=== PATIENT | female | born 1945 | race Caucasian/White ===

== ENCOUNTER → 2018-10-26 13:01 | Outpatient (CLI) | payer OTHER, SELFPAY ==
--- NOTE | 2018-10-26 14:51 | PM.TREADMILL ---
Cardiac Stress Test Report Referral & Results Date Patient Seen: 10/26/18 Requesting provider: Leticia James Indication: Shortness of breath Rest ECG: Unremarkable Procedure Note: Today following both written and verbal informed consent the patient was exercised according to a standard Martinez protocol patient went for a total of 3 minutes 27 seconds all of which was Martinez protocol stage I, achieving a maximum heart rate of 150 maximum systolic blood pressure of 180. This is approximately 4.6 METS. Exercise was terminated at this point because of severe dyspnea. Patient was also given Cardiolite through a previously started Hep-Lock IV by the diagnostic imaging staff approximately 1 minute prior to the cessation of exercise. There are no ST-T segment changes Patient was tachycardic at rest and peak heart rate was also somewhat tachycardic normal blood pressure response Functional aerobic impairment rated about 18% of the sedentary scale Dyspnea was fairly marked and profound early on. Impression: Severe dyspnea without clear etiology No ECG changes to suggest ischemia Somewhat limited exercise capacity Please see perfusion imaging report as well. Please note: Actual ECG tracings can be found in the PACS system.
--- NOTE | 2018-10-31 17:49 | DI.NM.S_ITS ---
DATE OF SERVICE: 10/26/2018 PROCEDURE: Exercise perfusion study. INDICATIONS: Shortness of breath, palpitations, hypertension. RADIOPHARMACEUTICAL: 26.4 mCi technetium-99m Myoview IV was injected at stress and 20.8 mCi technetium-99m Myoview IV was injected at rest. CARDIAC STRESS: Patient underwent exercise perfusion study under the supervision of an attending staff. She walked on Martinez protocol for 3 minutes 27 seconds and develop significant shortness of breath. Baseline blood pressure was 136/82 and heart rate 105 with sinus tachycardia. Maximum heart rate about 150 bpm and peak blood pressure 180/68. Patient achieved 102% of target heart rate, 4.6 METs of workload, and ONESIMO +18% on sedentary scale. Baseline rhythm was sinus with mild sinus tachycardia with some nonspecific ST-T changes. Stress EKG did not reveal inducible ischemic changes. There was no significant new arrhythmia. RAW DATA: Breast shadow was seen. GATED STUDY: Resting LV ejection fraction 75 and stress LV ejection fraction 78% without any obvious wall motion abnormalities. Resting end-diastolic volume is 118 mL. No transient ischemic dilatation. TID ratio is 0.86, which is within normal limits. Lung/heart ratio is 0.40, which is within normal limits. Patient's weight is 203 pounds. MYOCARDIAL PERFUSION SCAN: Stress supine and resting supine images revealed small-sized mildly decreased perfusion of anterior wall which got resolved during prone images suggestive of breast tissue attenuation artifact. I don't see any convincing ischemia infarction. CONCLUSION: I will call this study a normal myocardial perfusion study with evidence of breast tissue attenuation artifact which got resolved during prone images. Patient has diminished exercise tolerance. She has mild sinus tachycardia at rest. Developed significant shortness of breath. Her weight is 203 pounds. Consider 2-D echocardiogram to make sure there is no significant diastolic dysfunction as well as pulmonary workup. [employer] - MARLEE/loc/ doc#: [id number]/job#: [id number] dd: 10/31/2018 17:00:00 dt: 10/31/2018 17:39:00 DICTATING MD/COPIES TO: June Lowe MD COPIES MNE: BERNARDO
== END ==
PROVIDERS: Visit Provider Physician Assistant Medical
DX: R06.02 Shortness of breath (principal)
CPT/HCPCS: 78452; 93016; 93017; 93018; A9502

== ENCOUNTER → 2018-10-31 13:27 | Outpatient (CLI) | payer OTHER, SELFPAY ==
--- NOTE | 2018-10-31 | DI.ECHO.S_ITS ---
[place] +---------+ Hospital +---------+ : : [address] : : : : [address] : : : : Phone: [phone] Echocardiogram Report + + :Name: ANDREI ALMONTE Study Date: 10/31/2018 Height: 65 in : :[facility] Exam Location: IS Weight: 203 lb : : Gender: Female BSA: 2.0 m2 : :: 1945 Age: 73 yrs BP: 138/75 mmHg: :Reason For Study: SHORTNESS OF BREATH : : Performed By: Guillermo Mccauley : :Referring: [facility] : + + Interpretation Summary The left ventricle is normal in size, wall thickness, and systolic function without any focal wall motion abnormalities with the ejection fraction visually estimated to be 55-60%. Diastolic function could not be accurately assessed due to contradictory data. The right ventricle is at the upper limits of normal in size but systolic function is normal. There is mild pulmonary hypertension with the right ventricular systolic pressure estimated to be at least 37 mmHg based on an estimated right atrial pressure of 3 mm Hg. The left atrium is moderately dilated and the right atrium is mildly dilated. There is mild tricuspid regurgitation but no other significant valvular heart disease. The ascending aorta is mildly enlarged. Procedure: A two-dimensional transthoracic echocardiogram with color flow and Doppler was performed. The study quality was technically good. There is no prior echocardiogram noted for this patient. The patient was in normal sinus rhythm during the exam. Left Ventricle: The left ventricle is normal in size, wall thickness, and systolic function without any focal wall motion abnormalities. The ejection fraction is estimated to be 55-60%. Diastolic function could not be accurately assessed due to contradictory data. Right Ventricle: The right ventricle is at the upper limits of normal in size. The right ventricular systolic function is normal. Atria: The left atrium is moderately dilated. The right atrium is mildly dilated. The interatrial septum is intact with no evidence for an atrial septal defect. Mitral Valve: The mitral valve is normal in structure and function. There is trace mitral regurgitation. Aortic Valve: The aortic valve is trileaflet. The aortic valve opens well. There is trace aortic regurgitation. Tricuspid Valve: The tricuspid valve is normal in structure and function. There is mild tricuspid regurgitation. There is mild pulmonary hypertension. The right ventricular systolic pressure is estimated to be at least 37 mmHg based on an estimated right atrial pressure of 3 mm Hg. Pulmonic Valve: The pulmonic valve is normal in structure and function. There is trace pulmonic regurgitation. There is no other significant valvular heart disease. Great Vessels: The aortic root is normal size. The ascending aorta is mildly enlarged. The pulmonary artery is normal size. The IVC is of normal diameter and collapses greater than 50% with a sniff. This suggests a low right atrial pressure of 3 mm Hg. Pericardium/ Pleura There is no pericardial effusion. There is no pleural effusion. MMode/2D Measurements & Calculations LVIDd: 4.7 cm LVOT diam: 2.2 cm LVIDs: 2.8 cm Ao root diam: 3.4 cm FS: 39.8 % Aortic Jxn: 2.7 cm EPSS: 0.38 cm asc Aorta Diam: 3.4 cm IVSd: 0.99 cm Ao Arch Diam (Prox Trans): 2.3 cm LVPWd: 0.94 cm LV patino. diameter/BSA (cm/m^2): 2.4 LV sys. diameter/BSA (cm/m^2): 1.4 LA dimension: 3.8 cm RA long axis: 5.4 cm LA A2 area: 24.6 cm2 RA area: 20.5 cm2 LA A4 area: 28.4 cm2 RA vol: 66.3 ml LA length (vol): 6.6 cm RA : 33.3 ml/m2 LA vol: 90.6 ml IVC diam: 1.4 cm LA vol index: 45.5 ml/m2 RVD1 (basal): 4.4 cm RVD2 (mid): 4.8 cm Doppler Measurements & Calculations Ao V2 max: 149.6 cm/sec LVOT Max Kaushal: 106.8 cm/sec Ao V2 mean: 116.8 cm/sec LV V1 max P.6 mmHg Ao max P.9 mmHg LV V1 VTI: 28.4 cm Ao mean P.8 mmHg ALFONSO(I,D): 3.1 cm2 Ao V2 VTI: 36.9 cm ALFONSO(V,D): 2.8 cm2 sev ratio: 0.77 ALFONSO indexed to BSA (cm^2/m^2): 1.5 MV E max kaushal: 85.7 cm/sec TR max kaushal: 291.0 cm/sec MV A max kaushal: 94.5 cm/sec TR max P.9 mmHg MV E/A: 0.91 PA V2 max: 97.2 cm/sec Med Peak E' Kaushal: 6.6 cm/sec PA V2 mean: 70.1 cm/sec E/E' med: 13.0 PA mean P.1 mmHg Lat Peak E' Kaushal: 12.3 cm/sec PA pr(Accel): 21.6 mmHg E/E' lat: 7.0 PA Accel Time: 0.13 sec E/e' average: 10.0 MV dec time: 0.18 sec SV(OT): 112.8 ml Reading Physician:PM
== END ==
PROVIDERS: PCP Family Medicine Geriatric Medicine; Visit Provider Physician Assistant Medical
DX: R06.02 Shortness of breath (principal); I27.20 Pulmonary hypertension, unspecified; I07.1 Rheumatic tricuspid insufficiency; I77.89 Other specified disorders of arteries and arterioles
CPT/HCPCS: 93306

== ENCOUNTER 2018-12-10 17:43 | Observation (INO) | payer OTHER, SELFPAY ==
[2018-12-10] VITALS (8 sets, daily range): BP systolic 124–150; BP diastolic 59–76; PULSE 64–79; RESP 12–18; TEMP 36.3–36.7; O2SAT 92–100; BMI 27.4
--- NOTE | 2018-12-10 19:53 | ED.WEAKNESS ---
HPI - Weakness General Chief complaint: Weakness Stated complaint: INFUSION AND O2 IS REALLY LOW Time Seen by Provider: 12/10/18 18:01 Source: patient and family Mode of arrival: ambulatory Limitations: no limitations History of Present Illness HPI Narrative: Patient comes emergency department complaining of progressive generalized weakness for the last several months. She states that his become especially pronounced over the last 2 weeks. Patient denies any blood in her stools. No melena. She denies any chest pain. She has been short of breath with exertion. Patient denies fevers or chills. She states she has been under the care of a employee communications intern, and has put herself on some sort of natural anticoagulant. She states she did this because she was concerned about forming blood clots. There is no personal or family history of blood clots or CVA. She states her last dose was last night. Patient finally went to see her primary care physician a couple of weeks ago, and was sent for a stress test, which did not show any EKG changes. However, the patient became very dyspneic during the stress test, and so she was told she needed to go see a picked edge sewing machine operator. The patient came back to her home and for her, where she followed up with her employee communications intern, and was found to have a hemoglobin of 5.1 on labs. Patient was told to call [facility], which she did, and they stated they did not have her records of her labs, so she should follow up with her primary care physician. Patient called her primary doctor today, and was told to come here, which she did, via [employer]. Patient denies ever having any history of anemia or GI bleed previously. She states she does not believe that she could be bleeding, despite her use of an apparent anticoagulant agent. No other complaints at this time. Related Data Allergies Allergy/AdvReac Type Severity Reaction Status Date / Time No Known Drug Allergies Allergy Verified 12/10/18 18:02 Review of Systems Constitutional Constitutional: Denies chills, Denies fatigue, Denies fever(s), Denies frequent falls, Denies lethargy and Reports weakness Eyes Eyes: Denies change in vision, Denies eye discharge, Denies irritation and Denies loss of vision ENT Ears, Nose, Mouth, and Throat: Denies change in voice, Denies dizziness, Denies neck pain, Denies sore throat and Denies throat swelling Cardiovascular Cardiovascular: Denies chest pain, Denies irregular heart rhythm, Denies lightheadedness, Denies palpitations, Denies dyspnea, Denies dyspnea on exertion and Denies orthopnea Respiratory Respiratory: Denies cough, Denies dyspnea, Denies dyspnea on exertion and Denies wheezing Gastrointestinal Gastrointestinal: Denies abdominal pain, Denies change in bowel habits, Denies diarrhea, Denies nausea and Denies vomiting Genitourinary Genitourinary: Denies hematuria, Denies flank pain, Denies urinary incontinence and Denies urinary urgency Musculoskeletal Musculoskeletal: Denies back pain, Denies muscle weakness, Denies neck pain, Denies numbness and Denies tingling Integumentary/Breasts Skin/Breast: Denies pruritus, Denies erythema, Denies rash and Denies wounds Neurologic Neurologic: Denies behavioral changes, Denies confusion, Denies dizziness, Denies frequent falls, Denies loss of vision, Denies numbness, Denies tingling and Reports weakness Psychiatric Psychiatric: Denies anxiety, Denies behavioral changes, Denies confusion, Denies depression, Denies homicidal ideation and Denies suicidal ideation Endocrine Endocrine: Denies fatigue, Denies flushing and Denies palpitations Hematologic/Lymphatic Hematologic/Lymphatic: Denies easy bruising Allergic/Immunologic Allergic/Immunologic: Denies urticaria, Denies throat swelling and Denies wheezing [facility] Medical History (Updated 12/11/18 @ 04:02 by NARA Rock) Cataract (Acute) Gluten intolerance (Acute) History of ectopic (Acute) Normal colonoscopy (Acute) Peripheral neuropathy (Acute) Pernicious anemia (Acute) Rheumatic fever (Acute) Surgical History (Updated 12/11/18 @ 04:03 by NARA Rock) History of cholecystectomy (Acute) Family History (Updated 12/11/18 @ 04:04 by NARA Rock) Father Lung cancer Alcohol abuse Social History household members: spouse Smoking Status: Never smoker Family History (Updated 12/11/18 @ 04:04 by NARA Rock) Father Lung cancer Alcohol abuse Social History household members: spouse Smoking Status: Never smoker Exam Initial Vital Signs Initial Vital Signs: Vital Signs Temperature 98.1 F 12/10/18 17:57 Pulse Rate 67 12/10/18 17:57 Respiratory Rate 18 12/10/18 17:57 Blood Pressure 150/72 H 12/10/18 17:57 Pulse Oximetry 100 12/10/18 17:57 Const General: cooperative and well developed Nutritional Appearance: well nourished Orientation: alert, awake, oriented x3 and not confused [facility] Head: normocephalic and atraumatic Ears: TM's normal bilaterally Nose: external nose normal and No nasal discharge Face and sinus: face symmetric and No dry mucous membranes Mouth: oral mucosae normal and moist mucous membranes Teeth and gingiva: dentition normal Eyes General: appearance normal, both eyes and all related structures Eyelids: eyelids normal Conjunctivae: conjunctivae normal Sclera: sclerae normal Pupils: PERRL EOM: EOM intact bilaterally Neck Neck: normal visual inspection, trachea midline, No lymphadenopathy, No midline deformity and No JVD Lymphatic: No lymphedema Chest Chest: normal inspection of the chest Resp Effort & Inspection: normal respiratory effort, able to speak in complete sentences, no respiratory distress and no use of accessory muscles Auscultation: clear to auscultation bilaterally, no rales, no rhonchi and no wheezes Cardio Rate: regular rate Rhythm: regular rhythm Heart Sounds: no click, no gallops, no murmurs and no rubs Pulses: normal peripheral pulses GI Inspection: non-distended Palpation: soft, no hepatosplenomegaly, No guarding, No pulsatile mass and No tender Auscultation: normal bowel sounds Rectal Exam: heme positive stool (Moderate) Back/Spine/Pelvis Back: No CVA tenderness Cervical Spine: cervical ROM normal and No pain with cervical ROM Thoracic/Lumbar Spine: thoracic and lumbar spine normal to inspection Skin General: no rashes or lesions noted, No jaundice, No petechiae and pallor (Marked) Neuro General: alert, oriented x3, gait normal and no focal motor deficits Speech: speech normal Extrem General: full ROM, no clubbing, cyanosis or edema, no pedal edema and no calf tenderness Psych Appearance: well kempt Mental Status: mental status grossly normal Attitude: cooperative Thought Content: normal and suicidality Judgment: judgment good Course Course Course Narrative: Patient was worked up with labs, and type and screen/cross were done. Patient was found have an even lower hemoglobin of 4.7. Patient was cross-matched for 2 units packed red cells. I spoke with hospitalist Taylor, who agreed to admit the patient to her service. I have discussed with the patient that she will most likely need to have endoscopy and colonoscopy to evaluate her GI bleeding in the setting of severe anemia. Patient remained hemodynamically stable throughout her stay in the emergency department. Orders Ordered: Pantoprazole Sodium (Protonix) 40 mg IV BID ALBIN Discontinued Medications Iron Sucrose 200 mg/ Sodium (Chloride) 110 mls @ 220 mls/hr IV NOW ONE Stop: 12/11/18 05:59 Pantoprazole Sodium (Protonix) 80 mg IV NOW ONE Stop: 12/10/18 21:22 Last Admin: 12/10/18 21:33 Dose: 80 mg Documented by: CPRUITT Vital Signs Vital signs: Vital Signs - 8 hr 12/10/18 17:57 12/10/18 18:30 Temperature 98.1 F Pulse Rate 67 73 Respiratory Rate 18 16 Blood Pressure 150/72 H Blood Pressure [Left Arm] 142/61 H Pulse Oximetry 100 98 MDM - Weakness Medical Records Attestation: I reviewed the patient's medical records. Lab Data Attestation: I reviewed the patient's lab results. Result diagrams: 12/11/18 06:34 12/11/18 06:34 Labs: Lab Results 12/10/18 12/10/18 12/10/18 Range/Units 00:10 20:30 20:30 WBC 4.4 L (4.5-11.0) X10^3/uL RBC 2.64 L (4.0-5.2) X10^6/uL Hgb 4.7 L* (12.0-16.0) g/dL Hct 16.5 L* (36-46) % MCV 62.5 L (80-100) fL MCH 17.9 L (26-34) PG MCHC 28.7 L (30-36) % RDW 19.3 H (11.6-14.8) % Plt Count 350 (150-400) X10^3/uL Neut % (Auto) 69.3 (50-75) % Lymph % (Auto) 16.5 L (25-40) % Bullitt % (Auto) 12.0 (3-14) % Eos % (Auto) 1.3 L (2-4) % Baso % (Auto) 0.9 (0-2) % Neut # (Auto) 3100 (6059-2215) /uL Lymph # (Auto) 700 L (9886-3326) /uL Bullitt # (Auto) 500 (0-900) /uL Eos # (Auto) 100 (0-450) /uL Baso # (Auto) 0 (0-100) /uL RBC Morphology See below Polychromasia 1+ H Hypochromasia 3+ H Microcytosis 2+ H Percent Retic (1.06-2.63) % PT 12.3 (10.1-12.7) SECONDS INR 1.1 (0.9-1.3) Sodium (137-145) mmol/L Potassium (3.4-5.1) mmol/L Chloride (98-107) mmol/L Carbon Dioxide (22-32) mmol/L BUN (7-17) mg/dL Creatinine (0.52-1.04) mg/dL Estimated GFR (>60) mL/min BUN/Creatinine Ratio (6-22) Glucose (80-110) mg/dL Lactate (0.7-2.1) mmol/L Calcium (8.4-10.2) mg/dL Iron (37-170) ug/dL TIBC (265-497) ug/dL % Saturation (15-50) % Transferrin (206-381) mg/dL Ferritin (11.1-264) ng/mL Total Bilirubin (0.2-1.3) mg/dL AST (14-36) IU/L ALT (9-52) IU/L Alkaline Phosphatase (38-126) U/L Lactate Dehydrogenase (313-618) U/L Total Protein (6.3-8.2) g/dL Albumin (3.5-5.0) g/dL Globulin (1.7-4.1) g/dL Albumin/Globulin Ratio (1.0-2.8) Vitamin B12 (239-931) pg/mL Folate > 20.0 H (2.76-20.0) ng/mL Blood Type Antibody Screen Crossmatch 12/10/18 12/10/18 12/10/18 Range/Units 20:30 20:30 20:30 WBC (4.5-11.0) X10^3/uL RBC (4.0-5.2) X10^6/uL Hgb (12.0-16.0) g/dL Hct (36-46) % MCV (80-100) fL MCH (26-34) PG MCHC (30-36) % RDW (11.6-14.8) % Plt Count (150-400) X10^3/uL Neut % (Auto) (50-75) % Lymph % (Auto) (25-40) % Bullitt % (Auto) (3-14) % Eos % (Auto) (2-4) % Baso % (Auto) (0-2) % Neut # (Auto) (7576-9038) /uL Lymph # (Auto) (1977-0181) /uL Bullitt # (Auto) (0-900) /uL Eos # (Auto) (0-450) /uL Baso # (Auto) (0-100) /uL RBC Morphology Polychromasia Hypochromasia Microcytosis Percent Retic (1.06-2.63) % PT (10.1-12.7) SECONDS INR (0.9-1.3) Sodium 141 (137-145) mmol/L Potassium 3.7 (3.4-5.1) mmol/L Chloride 110 H (98-107) mmol/L Carbon Dioxide 21 L (22-32) mmol/L BUN 17 (7-17) mg/dL Creatinine 0.70 (0.52-1.04) mg/dL Estimated GFR > 60.0 (>60) mL/min BUN/Creatinine Ratio 24.3 H (6-22) Glucose 93 (80-110) mg/dL Lactate 0.9 (0.7-2.1) mmol/L Calcium 9.0 (8.4-10.2) mg/dL Iron (37-170) ug/dL TIBC (265-497) ug/dL % Saturation (15-50) % Transferrin (206-381) mg/dL Ferritin (11.1-264) ng/mL Total Bilirubin 0.3 (0.2-1.3) mg/dL AST 22 (14-36) IU/L ALT 18 (9-52) IU/L Alkaline Phosphatase 62 (38-126) U/L Lactate Dehydrogenase (313-618) U/L Total Protein 6.5 (6.3-8.2) g/dL Albumin 3.8 (3.5-5.0) g/dL Globulin 2.7 (1.7-4.1) g/dL Albumin/Globulin Ratio 1.4 (1.0-2.8) Vitamin B12 (239-931) pg/mL Folate (2.76-20.0) ng/mL Blood Type O Positive Antibody Screen Negative Crossmatch See Detail 12/10/18 12/10/18 12/10/18 Range/Units 20:30 20:30 20:30 WBC (4.5-11.0) X10^3/uL RBC (4.0-5.2) X10^6/uL Hgb (12.0-16.0) g/dL Hct (36-46) % MCV (80-100) fL MCH (26-34) PG MCHC (30-36) % RDW (11.6-14.8) % Plt Count (150-400) X10^3/uL Neut % (Auto) (50-75) % Lymph % (Auto) (25-40) % Bullitt % (Auto) (3-14) % Eos % (Auto) (2-4) % Baso % (Auto) (0-2) % Neut # (Auto) (3974-1384) /uL Lymph # (Auto) (5097-2507) /uL Bullitt # (Auto) (0-900) /uL Eos # (Auto) (0-450) /uL Baso # (Auto) (0-100) /uL RBC Morphology Polychromasia Hypochromasia Microcytosis Percent Retic (1.06-2.63) % PT (10.1-12.7) SECONDS INR (0.9-1.3) Sodium (137-145) mmol/L Potassium (3.4-5.1) mmol/L Chloride (98-107) mmol/L Carbon Dioxide (22-32) mmol/L BUN (7-17) mg/dL Creatinine (0.52-1.04) mg/dL Estimated GFR (>60) mL/min BUN/Creatinine Ratio (6-22) Glucose (80-110) mg/dL Lactate (0.7-2.1) mmol/L Calcium (8.4-10.2) mg/dL Iron 17 L (37-170) ug/dL TIBC 442 (265-497) ug/dL % Saturation 4 L (15-50) % Transferrin 346 (206-381) mg/dL Ferritin 3.8 L (11.1-264) ng/mL Total Bilirubin (0.2-1.3) mg/dL AST (14-36) IU/L ALT (9-52) IU/L Alkaline Phosphatase (38-126) U/L Lactate Dehydrogenase (313-618) U/L Total Protein (6.3-8.2) g/dL Albumin (3.5-5.0) g/dL Globulin (1.7-4.1) g/dL Albumin/Globulin Ratio (1.0-2.8) Vitamin B12 294 (239-931) pg/mL Folate (2.76-20.0) ng/mL Blood Type Antibody Screen Crossmatch 12/10/18 12/10/18 Range/Units 20:30 20:30 WBC (4.5-11.0) X10^3/uL RBC (4.0-5.2) X10^6/uL Hgb (12.0-16.0) g/dL Hct (36-46) % MCV (80-100) fL MCH (26-34) PG MCHC (30-36) % RDW (11.6-14.8) % Plt Count (150-400) X10^3/uL Neut % (Auto) (50-75) % Lymph % (Auto) (25-40) % Bullitt % (Auto) (3-14) % Eos % (Auto) (2-4) % Baso % (Auto) (0-2) % Neut # (Auto) (6734-9818) /uL Lymph # (Auto) (1315-8653) /uL Bullitt # (Auto) (0-900) /uL Eos # (Auto) (0-450) /uL Baso # (Auto) (0-100) /uL RBC Morphology Polychromasia Hypochromasia Microcytosis Percent Retic 2.9 H (1.06-2.63) % PT (10.1-12.7) SECONDS INR (0.9-1.3) Sodium (137-145) mmol/L Potassium (3.4-5.1) mmol/L Chloride (98-107) mmol/L Carbon Dioxide (22-32) mmol/L BUN (7-17) mg/dL Creatinine (0.52-1.04) mg/dL Estimated GFR (>60) mL/min BUN/Creatinine Ratio (6-22) Glucose (80-110) mg/dL Lactate (0.7-2.1) mmol/L Calcium (8.4-10.2) mg/dL Iron (37-170) ug/dL TIBC (265-497) ug/dL % Saturation (15-50) % Transferrin (206-381) mg/dL Ferritin (11.1-264) ng/mL Total Bilirubin (0.2-1.3) mg/dL AST (14-36) IU/L ALT (9-52) IU/L Alkaline Phosphatase (38-126) U/L Lactate Dehydrogenase 325 (313-618) U/L Total Protein (6.3-8.2) g/dL Albumin (3.5-5.0) g/dL Globulin (1.7-4.1) g/dL Albumin/Globulin Ratio (1.0-2.8) Vitamin B12 (239-931) pg/mL Folate (2.76-20.0) ng/mL Blood Type Antibody Screen Crossmatch Discharge Plan Departure Patient Disposition: Admitted As Inpatient Clinical Impression: Anemia Discharge Date/Time: 12/10/18 22:05 Admit Date/Time: 12/10/18 21:34 Admit Provider: Angela Vazquez
[2018-12-10 20:50] LABS: INR 1.1 (0.9-1.3); Prothrombin Time 12.3 SECONDS (10.1-12.7)
[2018-12-10 20:52] LABS: Add Manual Diff / Slide Review NO; Basophils Absolute Auto 0 /uL (0-100); Mean Corpuscular HGB Conc 28.7 % (30-36); Monocytes Absolute Auto 500 /uL (0-900); Neutrophils Absolute Auto 3100 /uL (1500-7000)
[2018-12-10 20:54] LABS: Basophils Percent Auto 0.9 % (0-2); Eosinophils Absolute Auto 100 /uL (0-450); Eosinophils Percent Auto 1.3 % (2-4); Lymphocytes Absolute Auto 700 /uL (1100-4500); Lymphocytes Percent Auto 16.5 % (25-40); Mean Corpuscular Hemoglobin 17.9 PG (26-34); Mean Corpuscular Volume 62.5 fL (80-100); Neutrophils Percent Auto 69.3 % (50-75); Platelet Count 350 X10^3/uL (150-400); Red Blood Cell Count 2.64 X10^6/uL (4.0-5.2); Red Cell Distribution Width 19.3 % (11.6-14.8); White Blood Cell Count 4.4 X10^3/uL (4.5-11.0)
[2018-12-10 20:55] LABS: Alanine Aminotransferase 18 IU/L (9-52); Albumin 3.8 g/dL (3.5-5.0); Albumin Globulin Ratio 1.4 (1.0-2.8); Alkaline Phosphatase 62 U/L (38-126); Aspartate Aminotransferase 22 IU/L (14-36); BUN Creatinine Ratio 24.3 (6-22); Bilirubin Total 0.3 mg/dL (0.2-1.3); Blood Urea Nitrogen 17 mg/dL (7-17); Carbon Dioxide 21 mmol/L (22-32); Chloride 110 mmol/L (98-107); Estimated Glomerular Filt Rate > 60.0 mL/min (>60); Globulin 2.7 g/dL (1.7-4.1); Glucose 93 mg/dL (80-110); HEMOLYSIS < 15 (0-50); Potassium 3.7 mmol/L (3.4-5.1); Sodium 141 mmol/L (137-145); Total Protein 6.5 g/dL (6.3-8.2)
[2018-12-10 20:56] LABS: Hematocrit 16.5 % (36-46); Hemoglobin 4.7 g/dL (12.0-16.0); Lactate (Lactic Acid) 0.9 mmol/L (0.7-2.1)
[2018-12-10] MEDS: PANTOPRAZOLE 40 MG VIAL 80 MG IV (21:33)
[2018-12-10 21:36] LABS: Hypochromasia 3+; Microcytosis 2+; Polychromasia 1+
--- NOTE | 2018-12-10 23:49 | P.HP_ITS ---
History of Present Illness History of Present Illness Date Patient Seen: 12/10/18 Time Patient Seen: 23:29 Chief complaint: INFUSION AND O2 IS REALLY LOW Narrative: The patient is a 73-year-old female w/ PMHx of pernicious anemia, neuropathy, gluten intolerance / Celiac disease, and cortisol / endocrine abnormalities. Patient presented to the ED with generalized weakness. Symptoms initially noted in May of 2018. Progressively worsening, more so over the past 2 weeks. In addition, lab work done 2-3 days ago by her naturopathic provider revealed a nemia with a hemoglobin level of 5.1 by report. Associated symptoms include headache, dizziness, lightheadedness, BLE edema of ankle / foot (L > R) and shortness of breath. Shortness of breath is pronounced and exacerbated with exertion /decreased exercise tolerance. Patient denies chest pain, pa lpitations, abdominal pain, gastrointestinal distress, do hematochezia. On 10/31/2018 had an echo, LVEF 55-60%. LV normal in size, wall thickness, and systolic function without any focal wall motion abnormalities. It is noted that diastolic function could not be accurately assessed due to contradictory dated. Mild PH with RVSP of at least 37 mmHg. LA moderately dilated. RA mildly dilated. Mild tricuspid regurgitation, but no other significant valvular heart disease. Ascending aorta is mildly enlarged. On 10/26/2018 underwent NM myocardial perfusion scan with no indication of ischemia. Denies prior history of anemia. Denies history of peptic ulcer disease, polyps, or inflammatory bowel disease. She does note gluten intolerance; however, does not specifically state that she has celiac disease. Notes recently deviating from her gluten free diet. Denies dysphagia, abdominal pain, weight loss, nausea and vomiting, and use of NSAIDs. Patient History Medical History (Updated 12/11/18 @ 04:02 by NARA Rock) Cataract (Acute) Gluten intolerance (Acute) History of ectopic (Acute) Normal colonoscopy (Acute) Peripheral neuropathy (Acute) Pernicious anemia (Acute) Rheumatic fever (Acute) Surgical History (Updated 12/11/18 @ 04:03 by NARA Rock) History of cholecystectomy (Acute) Family History (Updated 12/11/18 @ 04:04 by NARA Rock) Father Lung cancer Alcohol abuse Social History household members: spouse Smoking Status: Never smoker Family & Social History Family History (Updated 12/11/18 @ 04:04 by NARA Rock) Father Lung cancer Alcohol abuse Social History: household members spouse Prior Living Arrangements House Safety & Behavioral: Feels Safe in Current Yes Environment Been Physically Hurt or No Threatened By a Person Suicidal Ideation Description None Suicide Plan Description No Plan Tobacco & Substance use: Smoking Status Never smoker alcohol intake frequency 0-2 drinks per day Substance Use Type does not use Meds Home Medications and Allergies Allergies Allergy/AdvReac Type Severity Reaction Status Date / Time No Known Drug Allergies Allergy Verified 12/10/18 18:02 Review of Systems Review of Systems ROS Unobtainable: All systems reviewed & are unremarkable except as noted in HPI and below Exam Vital Signs (past 8 hours): - 12/10/18 17:57 12/10/18 18:30 12/10/18 19:30 Temperature 98.1 F Pulse Rate 67 73 74 Respiratory Rate 18 16 16 Blood Pressure 150/72 H Blood Pressure [Left Arm] 142/61 H 150/76 H Pulse Oximetry 100 98 100 12/10/18 20:00 12/10/18 21:00 12/10/18 21:40 Temperature Pulse Rate 65 67 79 Respiratory Rate 16 15 15 Blood Pressure Blood Pressure [Left Arm] 142/68 H 141/73 H 150/69 H Pulse Oximetry 98 92 97 12/10/18 22:25 12/10/18 22:47 Temperature 97.7 F 97.4 F L Pulse Rate 64 64 Respiratory Rate 12 18 Blood Pressure 138/70 124/59 L Blood Pressure [Left Arm] Pulse Oximetry Oxygen Delivery Method Room Air Narrative Exam Narrative: Constitutional: NAD Neurologic: AOx3, no focal neurological deficits Head: NC, AT Eyes: PERRL, EOMI, Ears: external ears normal, no otorrhea Nose: external nose normal, no rhinorrhea or epistaxis Throat: dry MM, oropharynx w/o exudate Neck: no masses, lymphadenopathy, or JVD Chest / Respiratory: equal chest rise, unlabored respiratory effort, no dyspnea or tachypnea, diminished breath sounds Heart / CV: S1S2, no murmur Abdomen / GI: round, NT, ND, + BS, no organomegaly : no suprapubic tenderness, no CVA Peripheral / Vascular: warm to touch, DP and PT pulses palpable, trace BLE edema Musc: full ROM of upper and lower extremities, adequate muscle tone and bulk Skin: no ecchymosis, generalized pallor, generalized dryness of skin, Objective Labs Result Diagrams: 12/10/18 20:30 12/10/18 20:30 Labs: Laboratory Results - last 24 hr 12/10/18 12/10/18 12/10/18 20:30 20:30 20:30 WBC 4.4 L RBC 2.64 L Hgb 4.7 L* Hct 16.5 L* MCV 62.5 L MCH 17.9 L MCHC 28.7 L RDW 19.3 H Plt Count 350 Neut % (Auto) 69.3 Lymph % (Auto) 16.5 L [place] % (Auto) 12.0 Eos % (Auto) 1.3 L Baso % (Auto) 0.9 Neut # (Auto) 3100 Lymph # (Auto) 700 L [place] # (Auto) 500 Eos # (Auto) 100 Baso # (Auto) 0 RBC Morphology See below Polychromasia 1+ H Hypochromasia 3+ H Microcytosis 2+ H PT 12.3 INR 1.1 Sodium 141 Potassium 3.7 Chloride 110 H Carbon Dioxide 21 L BUN 17 Creatinine 0.70 Estimated GFR > 60.0 BUN/Creatinine Ratio 24.3 H Glucose 93 Lactate Calcium 9.0 Total Bilirubin 0.3 AST 22 ALT 18 Alkaline Phosphatase 62 Total Protein 6.5 Albumin 3.8 Globulin 2.7 Albumin/Globulin Ratio 1.4 Blood Type Antibody Screen Crossmatch 12/10/18 12/10/18 20:30 20:30 WBC RBC Hgb Hct MCV MCH MCHC RDW Plt Count Neut % (Auto) Lymph % (Auto) [place] % (Auto) Eos % (Auto) Baso % (Auto) Neut # (Auto) Lymph # (Auto) [place] # (Auto) Eos # (Auto) Baso # (Auto) RBC Morphology Polychromasia Hypochromasia Microcytosis PT INR Sodium Potassium Chloride Carbon Dioxide BUN Creatinine Estimated GFR BUN/Creatinine Ratio Glucose Lactate 0.9 Calcium Total Bilirubin AST ALT Alkaline Phosphatase Total Protein Albumin Globulin Albumin/Globulin Ratio Blood Type O Positive Antibody Screen Negative Crossmatch See Detail Assessment & Plan Assessment & Plan narrative: Patient is being admitted for evaluation and treatment of anemia. HGB 4.7, HCT 16.5, MCV 62.5, MCH 17.9, MCHC 28.7, RDW 19.3, PLT 350 WBC 4.4, Lactate 0.9 Guiac + , no active s/s of melena, hematochezia, or other blood loss. VSS S/S: pallor, weakness, fatigue, exertional dyspnea, exercise intolerance Microcytic hypochromic anemia, acute, present on admission, active Suspected to be secondary to iron deficiency. H/O celiac disease. Denies prior history of anemia. - T&S, 2 units PRBCs ordered in ED (finished transfusing at 4:00 a.m. on 12/11) - Received 80 mg IV protonix in ED, will continue PPI 40 mg BID starting in am on 12/11 - Iron studies, B12, folate, retic count results: Iron 17 TIBC 442 TSAT 4% Transferrin 346 Ferritin 3.8, indicates severe iron deficiency Retic count 2.9%, absolute retic count is 1.1 indicating hypoproliferation B12 294 Folate > 20 WNL . Severe iron deficiency Will treat with Venofer 200 mg IV x1, consider 4 more doses to be given QOD if patient has not been discharged - Blood smear reveals hypochromic, microcytic RBCs - CBC in am after blood transfusion - Consider general surgery consult, as still need to rule out chronic blood loss, needs endoscopy Exercise intolerance, acute, present on admission, active - Echo with LVEF 55-60% - NM stress test without indication of ischemia - Consider pulm evaluation if exercise intolerance is not corrected with iron repletion Metabolic acidosis, compensated, present on admission, active Compensated without lactic acidosis, lactate Celiac disease/gluten intolerance, chronic condition, present on admission, stable Now with complications of iron deficiency likely in the setting of malabsorption. No known prior ulcers. - Patient will need to be evaluated further with endoscopy - Will make NPO Code status discussed. Patient wishes to be full code. Designates as proxy decision maker. Patient does not take common OTC meds. She is on a number of supplements which will be held at this time. VTE prophylaxis with SCDs.
[2018-12-11] VITALS (11 sets, daily range): BP systolic 120–144; BP diastolic 54–82; PULSE 65–79; RESP 10–21; TEMP 36.5–36.9; O2SAT 94–99
[2018-12-11 00:04] LABS: Iron 17 ug/dL (37-170)
[2018-12-11 00:14] LABS: Percent Iron Saturation 4 % (15-50); Total Iron Binding Capacity 442 ug/dL (265-497); Transferrin 346 mg/dL (206-381)
[2018-12-11 00:33] LABS: Lactate Dehydrogenase 325 U/L (313-618)
[2018-12-11 00:42] LABS: Ferritin 3.8 ng/mL (11.1-264)
[2018-12-11 01:24] LABS: Vitamin B12 294 pg/mL (239-931)
[2018-12-11 01:40] LABS: Folate > 20.0 ng/mL (2.76-20.0)
[2018-12-11 02:37] LABS: Reticulocyte Count, Percent 2.9 % (1.06-2.63)
[2018-12-11 06:52] LABS: Basophils Absolute Auto 0 /uL (0-100); Basophils Percent Auto 0.5 % (0-2); Eosinophils Absolute Auto 100 /uL (0-450); Eosinophils Percent Auto 1.3 % (2-4); Hematocrit 22.7 % (36-46); Hemoglobin 7.2 g/dL (12.0-16.0); Lymphocytes Absolute Auto 600 /uL (1100-4500); Mean Corpuscular HGB Conc 31.6 % (30-36); Mean Corpuscular Hemoglobin 21.7 PG (26-34); Mean Corpuscular Volume 68.5 fL (80-100); Monocytes Absolute Auto 600 /uL (0-900); Monocytes Percent Auto 11.6 % (3-14); Neutrophils Absolute Auto 3600 /uL (1500-7000); Neutrophils Percent Auto 73.6 % (50-75); Platelet Count 334 X10^3/uL (150-400); Red Blood Cell Count 3.31 X10^6/uL (4.0-5.2); Red Cell Distribution Width 26.3 % (11.6-14.8); White Blood Cell Count 4.9 X10^3/uL (4.5-11.0)
[2018-12-11 06:56] LABS: Add Manual Diff / Slide Review SLIDE REVIEW
[2018-12-11 06:57] LABS: Alanine Aminotransferase 21 IU/L (9-52); Albumin 3.7 g/dL (3.5-5.0); Albumin Globulin Ratio 1.4 (1.0-2.8); Alkaline Phosphatase 59 U/L (38-126); Aspartate Aminotransferase 21 IU/L (14-36); BUN Creatinine Ratio 17.1 (6-22); Bilirubin Total 0.5 mg/dL (0.2-1.3); Blood Urea Nitrogen 12 mg/dL (7-17); Carbon Dioxide 21 mmol/L (22-32); Chloride 112 mmol/L (98-107); Estimated Glomerular Filt Rate > 60.0 mL/min (>60); Globulin 2.6 g/dL (1.7-4.1); Glucose 97 mg/dL (80-110); HEMOLYSIS < 15 (0-50); Potassium 3.5 mmol/L (3.4-5.1); Sodium 141 mmol/L (137-145); Total Protein 6.3 g/dL (6.3-8.2)
[2018-12-11 07:27] LABS: Microcytosis 1+
[2018-12-11 07:28] LABS: Anisocytosis 3+; Hypochromasia 2+
[2018-12-11] MEDS: IRON SUCROSE 200 MG in SODIUM CHLORIDE 0.9% 100 ML 220 ML IV (09:12)
[2018-12-11] MEDS: PANTOPRAZOLE 40 MG VIAL IV (09:14)
--- NOTE | 2018-12-11 10:12 | PM.DS.1 ---
History of Present Illness History of Present Illness Date Patient Seen: 12/11/18 Chief complaint: INFUSION AND O2 IS REALLY LOW Narrative: Patient presented to the ED with generalized weakness. Symptoms initially noted in May of 2018. Progressively worsening, more so over the past 2 weeks. In addition, lab work done 2-3 days ago by her naturopathic provider revealed anemia with a hemoglobin level of 5.1 by report. Associated symptoms include headache, dizziness, lightheadedness, BLE edema of ankle / foot (L > R) and shortness of breath. Shortness of breath is pronounced and exacerbated with exertion /decreased exercise tolerance. Patient denies chest pain, palpitations, abdominal pain, gastrointestinal distress, do hematochezia. On 10/31/2018 had an echo, LVEF 55-60%. LV normal in size, wall thickness, and systolic function without any focal wall motion abnormalities. It is noted that diastolic function could not be accurately assessed due to contradictory dated. Mild PH with RVSP of at least 37 mmHg. LA moderately dilated. RA mildly dilated. Mild tricuspid regurgitation, but no other significant valvular heart disease. Ascending aorta is mildly enlarged. On 10/26/2018 underwent NM myocardial perfusion scan with no indication of ischemia. Denies prior history of anemia. Denies history of peptic ulcer disease, polyps, or inflammatory bowel disease. She does note gluten intolerance; however, does not specifically state that she has celiac disease. Notes recently deviating from her gluten free diet. Denies dysphagia, abdominal pain, weight loss, nausea and vomiting, and use of NSAIDs. Discharge Providers Provider Date of admission: 12/10/18 21:34 Discharge Date: 12/11/18 Primary care physician: Bri Jimenez MD Consults: 12/11/18 05:19 Consult to General Surgery Routine Comment: Consulting Provider: Mina Welsh Reason for consultation: anemia, guiac + Has provider been notified: No Discharge provider: Juliane Kohli MD Summary Hospital Course Discharge Diagnosis: 1. symptomatic iron deficiency anemia 2. Status post 2 units of packed RBCs 3. History of pernicious anemia 4. Peripheral neuropathy 5. History of rheumatic fever Hospital Course: The patient is a 73-year-old female who was admitted to the hospital for shortness of breath, fatigue, symptomatic anemia. She was found to have a hemoglobin of 4.7 on admission. The patient was found to be severely iron deficient. She was given IV iron. The patient received 2 units of packed RBCs. Her hemoglobin improved, with a H&H 6.8 and 22. The patient had no further shortness of breath, she was anxious to discharge home. Patient's case was discussed with General surgery. They recommended outpatient upper endoscopy and colonoscopy. The patient did have a guaiac-positive stool but had no melena or bright red blood per rectum. She had no hematemesis. The patient was agreeable to follow up on , 2 days after admission for upper and lower endoscopy. Patient had no specific complaints. She was deemed appropriate for discharge. Arrangements were made for her to be discharged home. Status at Discharge Cognitive/behavioral status at discharge: oriented Functional status at discharge: independent ambulation Overall status at discharge: patient is back to baseline Time Spent with Patient Time spent: Less than 30 minutes Exam Vital Signs (past 8 hours): - 12/11/18 03:45 12/11/18 04:06 12/11/18 05:00 Temperature 98.1 F 98.1 F Pulse Rate 66 71 Respiratory Rate 10 L 19 Blood Pressure 133/60 133/60 Pulse Oximetry 98 95 12/11/18 07:42 Temperature 97.7 F Pulse Rate 70 Respiratory Rate 21 Blood Pressure 144/73 H Pulse Oximetry 98 Oxygen Delivery Method Room Air Narrative Exam Narrative: Pleasant female in no obvious distress Lungs: Clear to auscultation Cardiac exam: Regular rate and rhythm normal S1-S2 Abdomen: Soft nontender nondistended Extremities: No edema Skin: No lesion Objective Labs Result Diagrams: 12/11/18 06:34 12/11/18 06:34 Labs: Laboratory Results - last 24 hr 12/10/18 12/10/18 12/10/18 00:10 20:30 20:30 WBC 4.4 L RBC 2.64 L Hgb 4.7 L* Hct 16.5 L* MCV 62.5 L MCH 17.9 L MCHC 28.7 L RDW 19.3 H Plt Count 350 Neut % (Auto) 69.3 Lymph % (Auto) 16.5 L [place] % (Auto) 12.0 Eos % (Auto) 1.3 L Baso % (Auto) 0.9 Neut # (Auto) 3100 Lymph # (Auto) 700 L [place] # (Auto) 500 Eos # (Auto) 100 Baso # (Auto) 0 RBC Morphology See below Polychromasia 1+ H Hypochromasia 3+ H Anisocytosis Microcytosis 2+ H Percent Retic PT 12.3 INR 1.1 Sodium Potassium Chloride Carbon Dioxide BUN Creatinine Estimated GFR BUN/Creatinine Ratio Glucose Lactate Calcium Iron TIBC % Saturation Transferrin Ferritin Total Bilirubin AST ALT Alkaline Phosphatase Lactate Dehydrogenase Total Protein Albumin Globulin Albumin/Globulin Ratio Vitamin B12 Folate > 20.0 H Nasal Screen MRSA (PCR) Blood Type Antibody Screen Crossmatch 12/10/18 12/10/18 12/10/18 20:30 20:30 20:30 WBC RBC Hgb Hct MCV MCH MCHC RDW Plt Count Neut % (Auto) Lymph % (Auto) [place] % (Auto) Eos % (Auto) Baso % (Auto) Neut # (Auto) Lymph # (Auto) [place] # (Auto) Eos # (Auto) Baso # (Auto) RBC Morphology Polychromasia Hypochromasia Anisocytosis Microcytosis Percent Retic PT INR Sodium 141 Potassium 3.7 Chloride 110 H Carbon Dioxide 21 L BUN 17 Creatinine 0.70 Estimated GFR > 60.0 BUN/Creatinine Ratio 24.3 H Glucose 93 Lactate 0.9 Calcium 9.0 Iron TIBC % Saturation Transferrin Ferritin Total Bilirubin 0.3 AST 22 ALT 18 Alkaline Phosphatase 62 Lactate Dehydrogenase Total Protein 6.5 Albumin 3.8 Globulin 2.7 Albumin/Globulin Ratio 1.4 Vitamin B12 Folate Nasal Screen MRSA (PCR) Blood Type O Positive Antibody Screen Negative Crossmatch See Detail 12/10/18 12/10/18 12/10/18 20:30 20:30 20:30 WBC RBC Hgb Hct MCV MCH MCHC RDW Plt Count Neut % (Auto) Lymph % (Auto) [place] % (Auto) Eos % (Auto) Baso % (Auto) Neut # (Auto) Lymph # (Auto) [place] # (Auto) Eos # (Auto) Baso # (Auto) RBC Morphology Polychromasia Hypochromasia Anisocytosis Microcytosis Percent Retic PT INR Sodium Potassium Chloride Carbon Dioxide BUN Creatinine Estimated GFR BUN/Creatinine Ratio Glucose Lactate Calcium Iron 17 L TIBC 442 % Saturation 4 L Transferrin 346 Ferritin 3.8 L Total Bilirubin AST ALT Alkaline Phosphatase Lactate Dehydrogenase Total Protein Albumin Globulin Albumin/Globulin Ratio Vitamin B12 294 Folate Nasal Screen MRSA (PCR) Blood Type Antibody Screen Crossmatch 12/10/18 12/10/18 12/10/18 20:30 20:30 22:00 WBC RBC Hgb Hct MCV MCH MCHC RDW Plt Count Neut % (Auto) Lymph % (Auto) [place] % (Auto) Eos % (Auto) Baso % (Auto) Neut # (Auto) Lymph # (Auto) [place] # (Auto) Eos # (Auto) Baso # (Auto) RBC Morphology Polychromasia Hypochromasia Anisocytosis Microcytosis Percent Retic 2.9 H PT INR Sodium Potassium Chloride Carbon Dioxide BUN Creatinine Estimated GFR BUN/Creatinine Ratio Glucose Lactate Calcium Iron TIBC % Saturation Transferrin Ferritin Total Bilirubin AST ALT Alkaline Phosphatase Lactate Dehydrogenase 325 Total Protein Albumin Globulin Albumin/Globulin Ratio Vitamin B12 Folate Nasal Screen MRSA (PCR) Negative for mrsa Blood Type Antibody Screen Crossmatch 12/11/18 12/11/18 06:34 06:34 WBC 4.9 RBC 3.31 L Hgb 7.2 L Hct 22.7 L MCV 68.5 L D MCH 21.7 L MCHC 31.6 D RDW 26.3 H Plt Count 334 Neut % (Auto) 73.6 Lymph % (Auto) 13.0 L [place] % (Auto) 11.6 Eos % (Auto) 1.3 L Baso % (Auto) 0.5 Neut # (Auto) 3600 Lymph # (Auto) 600 L [place] # (Auto) 600 Eos # (Auto) 100 Baso # (Auto) 0 RBC Morphology See below Polychromasia Hypochromasia 2+ H Anisocytosis 3+ H Microcytosis 1+ H Percent Retic PT INR Sodium 141 Potassium 3.5 Chloride 112 H Carbon Dioxide 21 L BUN 12 Creatinine 0.70 Estimated GFR > 60.0 BUN/Creatinine Ratio 17.1 Glucose 97 Lactate Calcium 9.0 Iron TIBC % Saturation Transferrin Ferritin Total Bilirubin 0.5 AST 21 ALT 21 Alkaline Phosphatase 59 Lactate Dehydrogenase Total Protein 6.3 Albumin 3.7 Globulin 2.6 Albumin/Globulin Ratio 1.4 Vitamin B12 Folate Nasal Screen MRSA (PCR) Blood Type Antibody Screen Crossmatch Discharge Plan Discharge Plan Patient Disposition: Home Discharge Med Rec/Prescriptions Prescriptions: New ferrous sulfate [iron] 325 mg (65 mg iron) tablet 325 mg PO BID Qty: 60 RF: 0 Follow up/Referrals: Bri Jimenez MD [Primary Care Provider] - Provider Discharge Instructions Diet: Diet as Tolerated Activity: As tolerated Other treatments: Patient to follow up with Dr. Frausto on November for a 1pm Colonoscopy/EGD Discharge Data Primary Care Provider: Bri Jimenez
--- NOTE | 2018-12-11 13:43 | PC.NURSE ---
Discharge Note: Pt initially checked on and assessed. Pt was sitting upright in chair, denies pain, A and O x4. Denies nausea. Voiding without difficulty. Dr. Kohli to bedside, discussed plan with patient. Pt given discharge orders with outpatient colonoscopy and EGD scheduled for , December 13. Pre scope prep orders received from clinic and given to patient per Dr. Frausto's request. Pt given discharge instructions on follow-up, medications and EGD/Colonoscopy. Pt discharged via wheelchair to private vehicle without incident.
--- NOTE | 2018-12-11 14:55 | CM.DANOTE ---
Discharge Planning/Care Management DCP: assessment: case received and discussed this morning in Team Rounds with Dr. Kohli. EMR reviewed. Pt is a 73 year old female who admitted to care of hospitalist team last night. Surgeon: Dr. Frausto: consulting. Payer: [facility]. Admission status: in review: per UR RN Mak. [place] [facility] PCP: Leticia Kohli noted that Dr. Frausto was recommending colonoscopy and EGD but as an outpt. She planned to discuss this further with pt. Checked in later. Dr. Kohli reports that pt was eager to d/c to home setting and did leave for home early this afternoon. She has an appt with Dr. Frausto on 12/13 for these procedures. CM Discharge Assessment Start: 12/11/18 14:54 Freq: Status: Active Protocol: Document 12/11/18 14:54 ITV (Rec: 12/11/18 14:55 ITV [id number]) Discharge Planning Assessment Advance Directives? No History Provided By Medical Record Prior Living Arrangements House Household Members spouse Independent with ADL's Yes Is patient alert and oriented? Yes Review Status In Process
--- NOTE | 2018-12-21 12:33 | PC.NURSE ---
late entry: iron sucrose stopped 12/11 0933
== END 2018-12-11 13:00 | disposition home or self-care (01) ==
LOC: ED 18:01 → AC 21:45 → ICU 12-11 09:10 → AC 12-11 10:26
PROVIDERS: Admitting Provider Nurse Practitioner Gerontology; Emergency Provider Emergency Medicine; PCP Family Medicine Geriatric Medicine; Visit Provider Nurse Practitioner Gerontology
DX: D50.8 Other iron deficiency anemias (principal); E87.2 Acidosis; K90.0 Celiac disease; G62.9 Polyneuropathy, unspecified
CPT/HCPCS: 36415; 36430; 36591; 80053; 82607; 82728; 82746; 83540; 83550; 83605; 83615; 84466; 85025; 85045; 85610; 86850; 86900; 86901; 87797; 93005; 96365; 96375; 96376; 99283; 99284; G0378; P9016; C9113; J1756

== ENCOUNTER 2018-12-13 12:28 | Day surgery (SDC) | payer OTHER, SELFPAY ==
[2018-12-10 23:01] VITALS: BMI 27.4
[2018-12-13] VITALS (8 sets, daily range): BP systolic 111–146; BP diastolic 56–80; PULSE 60–82; RESP 13–112; TEMP 36.1–36.6; O2SAT 92–100; BMI 31.4
--- NOTE | 2018-12-13 12:57 | PM.HP.1 ---
History of Present Illness History of Present Illness Date Patient Seen: 12/13/18 Time Patient Seen: 12:57 Chief complaint: [id number] COLONOSCOPY EGD Narrative: Patient presents for colorectal screening. They had previous screening 2008 which was reportedly normal. They were recently hospitalized for symptomatic anemia associated with guiac positive stool. On further history denies any recent gastrointestinal symptoms. No nausea, vomiting, abdominal pain, loss of appetite, unexplained weight loss, change in bowel habits, diarrhea, constipation, melena, hematochezia, or bright red blood per rectum. Patient History Medical History Cataract (Acute) Gluten intolerance (Acute) History of ectopic (Acute) Normal colonoscopy (Acute) Peripheral neuropathy (Acute) Pernicious anemia (Acute) Rheumatic fever (Acute) Surgical History History of cholecystectomy (Acute) Family History (Updated 12/11/18 @ 04:04 by NARA Rock) Father Lung cancer Alcohol abuse Social History household members: spouse Smoking Status: Never smoker Family & Social History Family History Father Lung cancer Alcohol abuse Social History: household members spouse Tobacco & Substance use: Smoking Status Never smoker alcohol intake frequency 0-2 drinks per day Substance Use Type does not use Meds Home Medications and Allergies Home Medications Medication Instructions Recorded Confirmed Type ferrous sulfate [iron] 325 mg PO BID #60 tab 12/11/18 Rx Allergies Allergy/AdvReac Type Severity Reaction Status Date / Time No Known Drug Allergies Allergy Verified 12/10/18 18:02 Review of Systems Review of Systems ROS Unobtainable: All systems reviewed & are unremarkable except as noted in HPI and below Exam Vital Signs (past 8 hours): General-adult female no acute distress, well nourished HEENT-moist mucous membranes, no scleral icterus Neck-supple with full range of motion, no lymphadenopathy Chest- no labored respirations, clear to auscultation bilaterally Cardiac-regular rate and rhythm Abdomen-soft, nontender, non distended Extremities-no edema, warm well perfused Neurological-alert and oriented x 3. No focal deficits Skin-normal temperature and turgor, no rashes or ulcers Assessment & Plan Assessment and plan (1) Anemia: Current visit: No Status: Acute Assessment & Plan narrative: Patient is requiring colorectal screening and upper endoscopy for anemia. Colonoscopy and esophagoduodenoscopy is recommended. Technical details were discussed. Risks, benefits, alternatives explained. Risks including but not limited to sedation, aspiration, bleeding, pain, missed lesion, incomplete examination, need for further radiographic studies, colonic perforation, need for major abdominal surgery, and all attendant risks major surgery were discussed at length. All questions were answered to their satisfaction, and they voiced understanding.
[2018-12-13] MEDS: SODIUM CHLORIDE 0.9% 1,000 ML 200 ML IV (13:12)
[2018-12-13] MEDS: LIDOCAINE 4% SOLN 50 ML 20 ML TOP (13:23)
[2018-12-13] MEDS: MIDAZOLAM 5 MG/5 ML VIAL IV (13:56)
[2018-12-13] MEDS: fentaNYL 250 MCG/5 ML INJ IV (13:56)
[2018-12-13] MEDS: GLUCAGON,HUMAN RECOMBINANT 1 MG/ML VIAL IV (13:58)
--- NOTE | 2018-12-13 16:13 | PM.OP.ENDO ---
Operative Date/Time/Diagnoses Date of procedure: 12/13/18 Time of procedure: 16:13 Pre-op diagnosis: anemia Post-op diagnosis: same Procedure & Clinicians Study performed: esophagoduodenoscopy and colonoscopy Same procedure as scheduled: Yes Indications: 73-year-old female with symptomatic anemia presents for screening esophagoduodenoscopy in colonoscopy Surgeon: Dennis Frausto Procedure Notes SCOAP/Timeout: Performed Procedure in detail: Procedure in detail: The scope was carefully inserted into mouth and advanced down the esophagus into the stomach. The stomach was insufflated. There was no evidence of gastritis or gastric ulcer. The pyloric channel was examined and was normal in its appearance. The scope was then retroflexed and a hiatal hernia of moderate size was observed. There was no evidence of Billy ulcer. The scope was then withdrawn into the esophagus where the Z-line was identified it was normal in its appearance. The stomach was then desufflated and the scope withdrawn. Digital rectal exam was performed which was negative for masses. The colonoscope was inserted into the rectum and carefully advanced through the colon. The ileocecal valve was reached and then the scope was carefully withdrawn. Inspection of the colon demonstrated only diverticulosis. There was no evidence of bleeding masses polyps or inflammation. Retroflexion within the rectum demonstrated grade 1 internal hemorrhoids. Scope withdrawal time: 8 Sedation minutes: 30 Findings: diverticulosis and hiatal hernia Specimen(s): none sent Complications: none Impression: Diverticulosis, hiatal hernia Impression: normal colonoscopy and esophagoduodenoscopy Post-procedure Recommendations: Other recommendation (referred to GI for possible capsule endoscopy) Disposition: same day surgery
== END 2018-12-13 15:12 | disposition home or self-care (01) ==
PROVIDERS: PCP Family Medicine Geriatric Medicine; Visit Provider Surgery
PROC: 0DJ08ZZ Inspection of Upper Intestinal Tract, Via Natural or Artificial Opening Endoscopic (ICD-10-PCS; CPT 43235; principal; 2018-12-13 13:00)
PROC: 0DJD8ZZ Inspection of Lower Intestinal Tract, Via Natural or Artificial Opening Endoscopic (ICD-10-PCS; CPT 45378; 2018-12-13 13:00)
DX: D64.9 Anemia, unspecified (principal); Z12.11 Encounter for screening for malignant neoplasm of colon; K57.30 Diverticulosis of large intestine without perforation or abscess without bleeding; K44.9 Diaphragmatic hernia without obstruction or gangrene; K64.1 Second degree hemorrhoids
CPT/HCPCS: 43235; G0121; 99152; 99153; J1610; J2250; J3010